=== PATIENT | female | born 1970 | race Asian ===

== ENCOUNTER 2018-12-27 12:16 | Day surgery (SDC) | payer OTHER ==
[~2018-12-27] VITALS: Ht 160 cm; Wt 63.7 kg
[2018-12-27] MEDS ORDERED: LACTATED RINGERS 1,000 ML IV SCH ×2 (12:51→15:01)
[2018-12-27 13:05] VITALS: BP 125/79
[2018-12-27] MEDS ORDERED: MULT-658 PO (13:10)
[2018-12-27] MEDS ORDERED: CHOL10002 PO (13:10)
[2018-12-27] MEDS ORDERED: FERR324T5 PO (13:10)
[2018-12-27 13:35] LABS: BASOPHILS # (AUTO) 0.08 x10^3/uL (0-0.1); BASOPHILS % (AUTO) 1 % (0-1); EOSINOPHILS # (AUTO) 0.11 x10^3/uL (0-0.4); EOSINOPHILS % (AUTO) 2 % (1-7); LYMPHOCYTES # (AUTO) 1.41 x10^3/uL (1-3.4); LYMPHOCYTES % (AUTO) 25 % (22-44); MD NO; MEAN CORPUSCULAR HEMOGLOBIN 28.4 pg (27.0-34.8); MEAN CORPUSCULAR HGB CONC 32.1 g/dL (32.4-35.8); MEAN CORPUSCULAR VOLUME 88.6 fL (80-100); MONOCYTES % (AUTO) 9 % (2-9); NEUTROPHILS # (AUTO) 3.54 x10^3/uL (1.8-6.8); NEUTROPHILS % (AUTO) 63 % (42-75); PLATELET COUNT 277 x10^3/uL (130-400); RED BLOOD COUNT 5.04 x10^6/uL (3.82-5.3); RED CELL DISTRIBUTION WIDTH 16.3 % (9.6-15.2)
[2018-12-27 13:46] LABS: HCG UR SG 1.024 (1.003-1.030)
[2018-12-27] MEDS ORDERED: MIDAZOLAM 1 MG/ML, 2ML ONE (14:20)
[2018-12-27] MEDS ORDERED: FENTANYL PF 100 MCG/2ML ONE (14:20)
[2018-12-27] MEDS ORDERED: BUPIVACAINE/PF 0.25% ONE (14:27)
[2018-12-27] MEDS ORDERED: PROPOFOL 10 MG/ML, 20ML ONE (14:33)
[2018-12-27] MEDS ORDERED: KETOROLAC 30 MG/1 ML ONE (14:33)
[2018-12-27] MEDS ORDERED: CEFAZOLIN 1,000 MG ONE (14:33)
[2018-12-27] MEDS ORDERED: DEXAMETHASONE 4 MG/ML, 1ML ONE (14:33)
[2018-12-27] MEDS ORDERED: ONDANSETRON 2MG/ML, 2ML ONE (14:33)
[2018-12-27] MEDS ORDERED: SILVER NITRATE STICK TP ONE (14:43)
[2018-12-27] MEDS ORDERED: ACETAMINOPHEN 650 MG/20.3 ML UDC ONE (15:17)
[2018-12-27] MEDS ORDERED: OXYcodone 5 MG/5 ML ORAL.SOL UDC ONE (15:18)
[2018-12-27] MEDS ORDERED: IBUPROFEN 600 MG TABLET PO PRN (15:30)
[2018-12-27] MEDS ORDERED: HYDROmorphone 2 MG/ML, 1ML IVPush PRN (15:30)
[2018-12-27] MEDS ORDERED: OXYcodone/APAP 5/325MG TABLET PO PRN (15:30)
[2018-12-27] MEDS ORDERED: FENTANYL PF 100 MCG/2ML IV PRN (15:30)
[2018-12-27] MEDS ORDERED: OXYcodone 5 MG/5 ML ORAL.SOL UDC PO PRN (15:30)
[2018-12-27] MEDS ORDERED: ONDANSETRON 2MG/ML, 2ML IVPush PRN (15:30)
[2018-12-27] MEDS ORDERED: ONDANSETRON 2MG/ML, 2ML IV PRN (15:30)
[2018-12-27] MEDS ORDERED: PROMETHAZINE 25 MG SUPP PR ONE (15:30)
[2018-12-27] MEDS ORDERED: PROMETHAZINE 25 MG/ML, 1ML IV PRN (15:30)
[2018-12-27] MEDS ORDERED: MEPERIDINE/PF 25MG/0.5ML IVPush PRN (15:30)
[2018-12-27] MEDS ORDERED: ACETAMINOPHEN 325 MG TABLET PO PRN (15:30)
== END 2018-12-27 17:25 | disposition home or self-care (01) ==
LOC: OR 12:16 → OUT 17:25
PROVIDERS: ATTEND Obstetrics & Gynecology Female Pelvic Medicine and Reconstructive Surgery
DX: N87.9 Dysplasia of cervix uteri, unspecified (principal); D50.0 Iron deficiency anemia secondary to blood loss (chronic)
CPT/HCPCS: 36415; 58563; 81025; 85025; 88305; J0690; J1100; J1885; J2250; J2405; J2704; J3010; J3490